=== PATIENT | male | born 1960 | race African-American/Black ===

== ENCOUNTER 2020-11-19 07:42 | Emergency (ER) | payer SELFPAY ==
[~2020-11-19] VITALS: Ht 177.8 cm; Wt 68.0 kg
--- NOTE | 2020-11-19 08:28 | EKG ---
[facility] [address] [place] [address] Test Date: 2020-11-19 Test Time: 08:13:47 Pat Name: KIMBERLY OVERTON Department: Room: Gender: M Job Lithographer: : 1960 Requested By: AKHIL DEL ROSARIO Order Number: [id number] [place] MD: Javier Garcia Measurements Intervals Imperial Rate: 82 P: 63 MA: 162 QRS: 55 QRSD: 78 T: 65 QT: 350 QTc: 412 Interpretive Statements SINUS RHYTHM NON-SPECIFIC ST/T CHANGES Electronically Signed On 11-22-2020 10:15:22 SUPERVISOR EXTRUSION by Javier Garcia
--- NOTE | 2020-11-19 08:46 | RAD ---
Left ankle 3 views INDICATION: Pain and swelling. History of prior fracture. COMPARISON: None. FINDINGS: AP, lateral, and oblique views of the left ankle show diffuse swelling around the ankle, interosseous bridging with ossification of the distal syndesmosis, and surgical fixation of medial and lateral ma lleolus fractures with good healing, including a lateral plate and screw construct, and 2 medial mall eolar fixation screws. No periprosthetic lucency. No evidence of hardware migration. IMPRESSION: Diffuse left ankle soft tissue swelling following ORIF of medial and lateral malleolar fractures with good osseous healing. Electronically signed by: Snehal Gold MD (11/19/2020 8:43 AM) [id number]
[2020-11-19 08:49] LABS: BASO # 0.1 x10^3/uL (0.0-0.2); BASO % 1 % (0-3); EOS % 0 % (0-3); HEMOGLOBIN 14.2 g/dL (13.0-17.5); LYMPH # 0.7 x10^3/uL (1.0-4.8); LYMPH % 14 % (24-48); MEAN CORPUSCULAR HEMOGLOBIN 30 pg (25-35); MEAN CORPUSCULAR HGB CONC 34 g/dL (31-37); MEAN CORPUSCULAR VOLUME 90 fL (79-100); MONO # 0.5 x10^3/uL (0.0-1.1); MONO % 11 % (0-9); NEUT # 3.6 x10^3/uL (1.8-7.7); NEUT % 74 % (31-73); PLATELET COUNT 377 x10^3/uL (140-400); RED BLOOD COUNT 4.69 x10^6/uL (4.30-5.70); RED CELL DISTRIBUTION WIDTH 14.9 % (11.5-14.5); WHITE BLOOD COUNT 4.8 x10^3/uL (4.0-11.0)
[2020-11-19 08:58] LABS: CALCIUM 9.2 mg/dL (8.5-10.1); CREATININE 0.7 mg/dL (0.7-1.3); GFR 140.2
[2020-11-19 09:04] LABS: ALBUMIN 3.6 g/dL (3.4-5.0); ALBUMIN/GLOBULIN RATIO 0.9 (1.0-1.7); MAGNESIUM 1.8 mg/dL (1.8-2.4); TOTAL BILIRUBIN 0.3 mg/dL (0.2-1.0); TOTAL PROTEIN 7.6 g/dL (6.4-8.2)
[2020-11-19 09:05] LABS: ACETAMIN < 2 mcg/ml (10-30); ETHANOL 345 mg/dL (0-10); SALIC < 2.8 mg/dL (2.8-20.0)
[2020-11-19 09:24] LABS: BILIRUBIN,URINE NEGATIVE (NEG); CLARITY,URINE CLEAR; COLOR,URINE YELLOW; NITRITE,URINE NEGATIVE (NEG); PROTEIN,URINE NEGATIVE (NEG-TRACE)
[2020-11-19 09:27] LABS: BARBITURATES NEG (NEG); BENZODIAZEPINES NEG (NEG); CANNABINOIDS NEG (NEG); COCAINE NEG (NEG); METHADONE NEG (NEG); OPIATES NEG (NEG); PHENCYCLIDINE NEG (NEG)
[2020-11-19] MEDS ORDERED: THIAMINE INJ 100 MG, FOLIC ACID INJ 1 MG in IV NORMAL SALINE 1000ML BAG 1,000 ML IV ONE (09:30)
--- NOTE | 2020-11-19 09:30 | RAD ---
EXAM: Left lower extremity venous Doppler. HISTORY: Left lower extremity pain/swelling. COMPARISON: None. FINDINGS: Grayscale and Doppler analysis of the left lower extremity deep venous systems was performe d with graded compression and augmentation. The common femoral, greater saphenous, superficial femora l, popliteal and calf veins were assessed. There is no evidence of deep venous thrombosis. IMPRESSION: 1. No evidence of deep venous thrombosis in the left lower extremity. Electronically signed by: Snehal Gold MD (11/19/2020 9:28 AM) [id number]
--- NOTE | 2020-11-19 09:32 | PHYS DOC ---
Past Medical History Past Medical History: Alcoholism, Unknown Past Medical History Limited secondary to ETOH intoxication Past Surgical History: Other Additional Past Surgical Histo: Left ankle ORIF Past Surgical History Limited secondary to ETOH intoxication Smoking Status: Current Every Day Smoker Alcohol Use: Heavy Additional Information: PT HAD 1/2 CAN OF NATURAL LIGHT AND 1/2 PINT OF VODKA IN BAG. THIS HAS BEEN DISCARDED. PT IS INTOXICATED. PT SAYS HE DRINKS EVERYDAY. Social History Limited secondary to ETOH intoxication General Adult EDM: Chief Complaint: SHORTNESS OF BREATH HPI: HPI: 60 year old male presents with report of LLE swelling and SOA x 2 weeks. Denies fever/chills. Denies cough. Reports remote history of left ankle fracture requiring ORIF. Patient denies trauma. Reports he has been drinking today. Reports he typically drinks "Natural Lights". Reports he also has been having suicidal thoughts. Reports he has thought about "jumping in front of a car." History of present illness limited secondary to alcohol intoxication. Review of Systems: Review of Systems: Review of systems limited secondary to alcohol intoxication Current Medications: Current Medications Medications (Trade) Dose Ordered Sig/Jose Start Time Stop Time Status Last Admin Dose Admin Thiamine HCl 100 mg/Folic Acid 1 mg/Sodium Chloride 1,001.2 ml @ 990.198 mls/hr 1X ONCE 11/19/20 09:30 11/19/20 10:30 11/19/20 09:21 990.198 MLS/HR Allergies: Allergies: Allergies Coded Allergies Type Severity Reaction Last Updated Verified No Known Drug Allergies 11/19/20 No Physical Exam: PE: Constitutional: Well developed, well nourished, intoxicated, disheveled HENT: Normocephalic, atraumatic Eyes: PERRL, EOMI, conjunctiva injected bilaterally, no discharge, horizontal nystagmus noted Neck: Normal range of motion, no tenderness, supple Lungs & Thorax: No respiratory distress, equal chest rise and fall Abdomen: Soft, no tenderness Skin: Warm, dry, no erythema, no rash Extremities: Left ankle tenderness noted, healed surgical scar appreciated, left lower extremity edema +2 Neurologic: Alert but inebriated, no focal deficits noted Psychologic: Affect intoxicated, judgment abnormal, reports suicidal ideation Current Patient Data: Labs: Laboratory Tests Test 11/19/20 08:35 11/19/20 09:00 White Blood Count 4.8 x10^3/uL (4.0-11.0) Red Blood Count 4.69 x10^6/uL (4.30-5.70) Hemoglobin 14.2 g/dL (13.0-17.5) Hematocrit 42.0 % (39.0-53.0) Mean Corpuscular Volume 90 fL (79-100) Mean Corpuscular Hemoglobin 30 pg (25-35) Mean Corpuscular Hemoglobin Concent 34 g/dL (31-37) Red Cell Distribution Width 14.9 % (11.5-14.5) H Platelet Count 377 x10^3/uL (140-400) Neutrophils (%) (Auto) 74 % (31-73) H Lymphocytes (%) (Auto) 14 % (24-48) L Monocytes (%) (Auto) 11 % (0-9) H Eosinophils (%) (Auto) 0 % (0-3) Basophils (%) (Auto) 1 % (0-3) Neutrophils # (Auto) 3.6 x10^3/uL (1.8-7.7) Lymphocytes # (Auto) 0.7 x10^3/uL (1.0-4.8) L Monocytes # (Auto) 0.5 x10^3/uL (0.0-1.1) Eosinophils # (Auto) 0.0 x10^3/uL (0.0-0.7) Basophils # (Auto) 0.1 x10^3/uL (0.0-0.2) Sodium Level 140 mmol/L (136-145) Potassium Level 4.0 mmol/L (3.5-5.1) Chloride Level 101 mmol/L (98-107) Carbon Dioxide Level 25 mmol/L (21-32) Anion Gap 14 (6-14) Blood Urea Nitrogen 6 mg/dL (8-26) L Creatinine 0.7 mg/dL (0.7-1.3) Estimated GFR (Cockcroft-Gault) 140.2 BUN/Creatinine Ratio 9 (6-20) Glucose Level 85 mg/dL (70-99) Calcium Level 9.2 mg/dL (8.5-10.1) Magnesium Level 1.8 mg/dL (1.8-2.4) Total Bilirubin 0.3 mg/dL (0.2-1.0) Aspartate Amino Transferase (AST) 52 U/L (15-37) H Alanine Aminotransferase (ALT) 51 U/L (16-63) Alkaline Phosphatase 94 U/L (46-116) Creatine Kinase 162 U/L (39-308) Creatine Kinase MB (Mass) 1.9 ng/mL (0.0-3.6) Creatine Kinase MB Relative Index 1.2 % (0-4) Troponin I Quantitative < 0.017 ng/mL (0.000-0.055) [id number]-Type Natriuretic Peptide 9 pg/mL (0-124) Total Protein 7.6 g/dL (6.4-8.2) Albumin 3.6 g/dL (3.4-5.0) Albumin/Globulin Ratio 0.9 (1.0-1.7) L Lipase 156 U/L (73-393) Salicylates Level < 2.8 mg/dL (2.8-20.0) L Salicylate Last Dose Date Unknown Salicylate Last Dose Time Unknown Acetaminophen Level < 2 mcg/ml (10-30) L Acetaminophen Last Dose Date Unknown Acetaminophen Last Dose Time Unknown Ethyl Alcohol Level 345 mg/dL (0-10) H Lactic Acid Level 2.3 mmol/L (0.4-2.0) H Laboratory Tests 11/19/20 08:35 Laboratory Tests 11/19/20 08:35 Vital Signs: Vital Signs Date Time Temp Pulse Resp B/P (MAP) Pulse Ox O2 Delivery O2 Flow Rate FiO2 11/19/20 07:47 98.6 90 16 138/86 (103) 98 Room Air 98.6 EKG: EKG: @0813 NSR at 82bpm, NO ST elevation, QRS 78ms, QT/QTc 350/412, baseline artifact noted, V3 rhythm displaced on sheet but visible Radiology/Procedures: Radiology/Procedures: PROCEDURE: ANKLE LEFT 3V Left ankle 3 views INDICATION: Pain and swelling. History of prior fracture. COMPARISON: None. FINDINGS: AP, lateral, and oblique views of the left ankle show diffuse swelling around the ankle, interosseous bridging with ossification of the distal syndesmosis, and surgical fixation of medial and lateral malleolus fractures with good healing, including a lateral plate and screw construct, and 2 medial malleolar fixation screws. No periprosthetic lucency. No evidence of hardware migration. IMPRESSION: Diffuse left ankle soft tissue swelling following ORIF of medial and lateral malleolar fractures with good osseous healing. Electronically signed by: Snehal Gold MD (11/19/2020 8:43 AM) [id number] PROCEDURE: VENOUS LOWER EXTREMITY LEFT EXAM: Left lower extremity venous Doppler. HISTORY: Left lower extremity pain/swelling. COMPARISON: None. FINDINGS: Grayscale and Doppler analysis of the left lower extremity deep venous systems was performed with graded compression and augmentation. The common femoral, greater saphenous, superficial femoral, popliteal and calf veins were assessed. There is no evidence of deep venous thrombosis. IMPRESSION: 1. No evidence of deep venous thrombosis in the left lower extremity. Electronically signed by: Snehal Gold MD (11/19/2020 9:28 AM) [id number] PROCEDURE: CT ANGIOGRAPHY CHEST PQRS Compliance Statement: One or more of the following individualized dose reduction techniques were utilized for this examination: 1. Automated exposure control 2. Adjustment of the mA and/or kV according to patient size 3. Use of iterative reconstruction technique CT CHEST WITH CONTRAST, PULMONARY ANGIOGRAM History: Reason: SOA, elevated d-dimer, Comparison: None. Technique: Helical CT of the chest was performed after the administration of 100 cc of Omnipaque 350 intravenous contrast according to PE protocol. Axial and coronal reconstructions were obtained. 3-D MIP images were constructed to better evaluate the pulmonary arteries. Findings: Pulmonary arteries are adequately opacified. There is no evidence of pulmonary embolism. No thoracic aortic dissection. Great vessels are normal caliber. The thyroid is symmetric. There are mildly enlarged bilateral hilar lymph nodes. There is no mediastinal adenopathy. There is coronary artery disease. Cardiac size is normal, no pericardial effusion. There is no pleural abnormality. The central airways are patent. There are multiple small bulla in the upper lobes. There is bilateral dependent atelectasis. There is fatty infiltration of the liver. Liver is incompletely imaged. The thoracic spine alignment is maintained. IMPRESSION: 1. There is no CT evidence of pulmonary embolus. 2. Mild bilateral hilar adenopathy may be reactive. 3. Bilateral dependent atelectasis. 4. Fatty infiltration of the liver. Electronically signed by: Terrance Crump MD (11/19/2020 10:49 AM) [id number] Course & Med Decision Making: Course & Med Decision Making Pertinent Labs and Imaging studies reviewed. (See chart for details) Patient presents with 2 week history of LLE swelling. Hx of ankle surgery. Patient also reports suicidality and is clinically inebriated. EKG stable. Labs obtained and posted to chart. ETOH > 350. D-dimer elevated. Venous doppler negative for acute DVT. Left ankle XR without acute fractureCTA chest without acute process. Patient medically cleared for PAT evaluation after patient now clinically sober. Barber (PAT) evaluated patient and deemed patient safe for discharge home with outpatient resources. Patient stable for discharge home with outpatient follow-up with PCP. Discussed findings and plan with patient, who acknowledges understanding and agreement. Dominga Disclaimer: Dominga Disclaimer: This electronic medical record was generated, in whole or in part, using a voice recognition dictation system. Departure Departure Impression: Primary Impression: Alcohol intoxication Qualified Codes: F10.921 - Alcohol use, unspecified with intoxication delirium Additional Impressions: Lactic acidosis Suicidal ideation Shortness of breath Peripheral edema Disposition: 01 DC HOME SELF CARE/HOMELESS Condition: STABLE Referrals: NO PCP (PCP) Patient Instructions: Alcohol Intoxication, [id number], Alcohol and Drug Addiction, Finding Treatment, Chronic Alcoholism, Lactic Acid, Lactate, Peripheral Edema, Shortness of Breath, [id number], Suicidal Feelings, How to Help Yourself Additional Instructions: Please utilize resources provided to you in the Emergency Department. AKHIL DEL ROSARIO DO Nov 19, 2020 09:32
[2020-11-19 09:36] LABS: PROTHROMBIN TIME PATIENT 12.6 SEC (11.7-14.0)
[2020-11-19 09:41] LABS: AMPHETAMINE/METHAMPHETAMINE NEG (NEG)
[2020-11-19 09:45] LABS: BACTERIA,URINE 0 /HPF (0-FEW); RBC,URINE 0 /HPF (0-2); WBC,URINE 0 /HPF (0-4)
[2020-11-19 09:51] LABS: D-DIMER 1.72 ug/mlFEU (0.00-0.50)
[2020-11-19] MEDS ORDERED: IOHEXOL 350 MG/ML 100 ML VIAL. IV ONE (10:15)
[2020-11-19] MEDS ORDERED: CONTRAST GIVEN. MC PRN (10:15)
--- NOTE | 2020-11-19 10:52 | RAD ---
PQRS Compliance Statement: One or more of the following individualized dose reduction techniques were utilized for this examinat ion: 1. Automated exposure control 2. Adjustment of the mA and/or kV according to patient size 3. Use of iterative reconstruction technique CT CHEST WITH CONTRAST, PULMONARY ANGIOGRAM History: Reason: SOA, elevated d-dimer, Comparison: None. Technique: Helical CT of the chest was performed after the administration of 100 cc of Omnipaque 350 intravenous contrast according to PE protocol. Axial and coronal reconstructions were obtained. 3- D MIP images were constructed to better evaluate the pulmonary arteries. Findings: Pulmonary arteries are adequately opacified. There is no evidence of pulmonary embolism. No thoracic aortic dissection. Great vessels are normal caliber. The thyroid is symmetric. There are mildly enlarged bilateral hilar lymph nodes. There is no mediastinal adenopathy. There is coronary ar evie disease. Cardiac size is normal, no pericardial effusion. There is no pleural abnormality. The central airways are patent. There are multiple small bulla in th e upper lobes. There is bilateral dependent atelectasis. There is fatty infiltration of the liver. Liver is incompletely imaged. The thoracic spine alignment is maintained. IMPRESSION: 1. There is no CT evidence of pulmonary embolus. 2. Mild bilateral hilar adenopathy may be reactive. 3. Bilateral dependent atelectasis. 4. Fatty infiltration of the liver. Electronically signed by: Terrance Crump MD (11/19/2020 10:49 AM) [id number]
[2020-11-19 12:25] VITALS: BP 132/75
== END 2020-11-19 12:45 | disposition home or self-care (01) ==
LOC: ER 07:42
DX: F10.229 Alcohol dependence with intoxication, unspecified (principal); Y90.8 Blood alcohol level of 240 mg/100 ml or more; E87.2 Acidosis; R45.851 Suicidal ideations; R06.02 Shortness of breath; R60.0 Localized edema; F17.200 Nicotine dependence, unspecified, uncomplicated
CPT/HCPCS: 36415; 71275; 73610; 80053; 80307; 80329; 81001; 82553; 83605; 83690; 83735; 83880; 84484; 85025; 85379; 85610; 85730; 93005; 93971; 96365; 99285; G0480; J3411; J3490; J7030; Q9967

== ENCOUNTER 2020-12-04 19:26 | Emergency (ER) | payer SELFPAY ==
[~2020-12-04] VITALS: Ht 172.7 cm; Wt 56.8 kg
--- NOTE | 2020-12-04 22:23 | ED.ADGEN ---
Past Medical History Past Medical History: Alcoholism, Unknown Past Surgical History: Other Additional Past Surgical Histo: Left ankle ORIF Smoking Status: Current Every Day Smoker Alcohol Use: Heavy General Adult EDM: Chief Complaint: ALCOHOL INTOXICATION HPI: HPI: Patient is a 60 year old AA male who presents to the emergency department via EMS with reports of intoxication. Patient denies any complaints. He denies any fever, body aches, cough, nausea, or vomiting. Patient denies any suicidal or homicidal ideations. He reports that he drank alcohol today. Limited HPI due to patient's intoxicated condition. Per EMS patient is homeless and was found passed out in a [employer] [address]. Review of Systems: Review of Systems: Complete ROS is negative unless otherwise noted in HPI. Allergies: Allergies: Allergies Coded Allergies Type Severity Reaction Last Updated Verified No Known Drug Allergies 11/19/20 No Physical Exam: PE: See Above Constitutional: Well developed, well nourished, no acute distress, non-toxic appearance, unkept, pleasant, odor of EtOH. [] HENT: Normocephalic, atraumatic, bilateral external ears normal, nose normal. [] Eyes: PERRLA, EOMI, conjunctiva normal, no discharge. [] Neck: Normal range of motion, no stridor. [] Cardiovascular:Heart rate regular rhythm Lungs & Thorax: Respirations even and unlabored, no retractions, no respiratory distress Abdomen: soft, no tenderness Skin: Warm, dry, no erythema, no rash. [] Extremities: No cyanosis, ROM intact, no edema. [] Neurologic: Alert and oriented X 2, no focal deficits noted. [] Psychologic: Affect normal, judgement normal, mood normal. [] Current Patient Data: Vital Signs: Vital Signs Date Time Temp Pulse Resp B/P (MAP) Pulse Ox O2 Delivery O2 Flow Rate FiO2 12/04/20 22:03 95 123/76 (92) 93 Room Air 12/04/20 19:31 98.2 20 98.2 EKG: EKG: [] Heart Score: Risk Factors: Risk Factors: DM, Current or recent (<one month) smoker, HTN, HLP, family histo ry of CAD, obesity. Risk Scores: Score 0 - 3: 2.5% MACE over next 6 weeks - Discharge Home Score 4 - 6: 20.3% MACE over next 6 weeks - Admit for Clinical Observation Score 7 - 10: 72.7% MACE over next 6 weeks - Early Invasive Strategies Radiology/Procedures: Radiology/Procedures: [] Course & Med Decision Making: Course & Med Decision Making Pertinent Labs and Imaging studies reviewed. (See chart for details) Patient is cooperative and following commands, he is clinically sober, RN looking for homeless group home. Patient to sleep in the emergency department until clinically sober. [] Dragon Disclaimer: Dragon Disclaimer: This electronic medical record was generated, in whole or in part, using a voice recognition dictation system. Departure Departure Impression: Primary Impression: Alcohol intoxication Disposition: 01 DC HOME SELF CARE/HOMELESS Condition: STABLE Referrals: NO PCP (PCP) Patient Instructions: Alcohol Intoxication, [id number] Additional Instructions: Return to the ER if your symptoms worsen or a fever develops. Attending Signature Attending Signature I have reviewed the PA/LEVER MILLER's note and plan of care. I was available for consultation as needed during the patient's visit in the emergency department. I agree with the clinical impression, plan, and disposition. Problem Qualifiers Primary Impression: Alcohol intoxication Complication of substance-induced condition: uncomplicated Qualified Codes: F10.920 - Alcohol use, unspecified with intoxication, uncomplicated JUAN LAMB APRN Dec 04, 2020 22:23 AKHIL DEL ROSARIO DO Dec 05, 2020 02:20
[2020-12-05 06:03] VITALS: BP 106/62
== END 2020-12-05 07:13 | disposition home or self-care (01) ==
LOC: ER 19:26
DX: F10.229 Alcohol dependence with intoxication, unspecified (principal); Y90.9 Presence of alcohol in blood, level not specified; F17.200 Nicotine dependence, unspecified, uncomplicated; Z59.0 Homelessness
CPT/HCPCS: 99285-25

== ENCOUNTER 2021-05-25 17:03 | Emergency (ER) | payer SELFPAY ==
[~2021-05-25] VITALS: Ht 167.6 cm; Wt 59.9 kg
[2021-05-25 17:18] VITALS: BP 134/88
[2021-05-25] MEDS ORDERED: MULTIVIT INFUSN,ADULT 4,VIT K 10 ML, THIAMINE INJ 100 MG, FOLIC ACID INJ 1 MG in IV NOR... IV ONE (18:00)
[2021-05-25 19:31] LABS: BASO # 0.1 x10^3/uL (0.0-0.2); BASO % 2 % (0-3); EOS % 1 % (0-3); HEMATOCRIT 36.9 % (39.0-53.0); HEMOGLOBIN 13.1 g/dL (13.0-17.5); LYMPH # 0.6 x10^3/uL (1.0-4.8); LYMPH % 24 % (24-48); MEAN CORPUSCULAR HEMOGLOBIN 34 pg (25-35); MEAN CORPUSCULAR HGB CONC 35 g/dL (31-37); MEAN CORPUSCULAR VOLUME 95 fL (79-100); MONO # 0.4 x10^3/uL (0.0-1.1); MONO % 17 % (0-9); NEUT # 1.3 x10^3/uL (1.8-7.7); NEUT % 55 % (31-73); PLATELET COUNT 157 x10^3/uL (140-400); RED BLOOD COUNT 3.89 x10^6/uL (4.30-5.70); RED CELL DISTRIBUTION WIDTH 13.3 % (11.5-14.5); WHITE BLOOD COUNT 2.4 x10^3/uL (4.0-11.0)
[2021-05-25 19:31] LABS: BILIRUBIN,URINE NEGATIVE (NEG); CLARITY,URINE CLEAR; COLOR,URINE YELLOW; NITRITE,URINE NEGATIVE (NEG); PH,URINE 5.5 (<5.0-8.0); PROTEIN,URINE NEGATIVE (NEG-TRACE); UROBILINOGEN,URINE 0.2 mg/dL (0.2 mg/dL)
[2021-05-25 19:38] LABS: BACTERIA,URINE 0 /HPF (0-FEW); BARBITURATES NEG (NEG); BENZODIAZEPINES NEG (NEG); CANNABINOIDS NEG (NEG); COCAINE NEG (NEG); METHADONE NEG (NEG); OPIATES NEG (NEG); PHENCYCLIDINE NEG (NEG); RBC,URINE 0 /HPF (0-2); WBC,URINE 0 /HPF (0-4)
[2021-05-25 19:40] LABS: CALCIUM 8.8 mg/dL (8.5-10.1); CREATININE 0.8 mg/dL (0.7-1.3); GFR 120.1; POTASSIUM 4.1 mmol/L (3.5-5.1)
[2021-05-25 19:42] LABS: AMPHETAMINE/METHAMPHETAMINE NEG (NEG)
[2021-05-25 19:44] LABS: ACETAMIN < 2 mcg/ml (10-30); ETHANOL 230 mg/dL (0-10); SALIC 5.1 mg/dL (2.8-20.0)
[2021-05-25 19:46] LABS: ALBUMIN 3.4 g/dL (3.4-5.0); ALBUMIN/GLOBULIN RATIO 0.9 (1.0-1.7); TOTAL BILIRUBIN 0.3 mg/dL (0.2-1.0); TOTAL PROTEIN 7.4 g/dL (6.4-8.2)
--- NOTE | 2021-05-25 20:50 | PHYS DOC ---
Past Medical History Past Medical History: Alcoholism, Unknown, Other Additional Past Medical Histor: ETOH Past Surgical History: Other Additional Past Surgical Histo: Left ankle ORIF Smoking Status: Current Every Day Smoker Alcohol Use: Heavy General Adult EDM: Chief Complaint: ALCOHOL INTOXICATION HPI: HPI: Patient is a 60 year old male with history of alcoholism presenting today to be evaluated after [place]. Patient admits to alcohol ingestion. He states this is a chronic issue, he states he drinks because he is depressed. He requested help with alcoholism. Denies any suicidal or homicidal ideations. Review of Systems: Review of Systems: Constitutional: Denies fever or chills. [] Eyes: Denies change in visual acuity. [] HENT: Denies nasal congestion or sore throat. [] Respiratory: Denies cough or shortness of breath. [] Cardiovascular: Denies chest pain or edema. [] GI: Denies abdominal pain, nausea, vomiting, bloody stools or diarrhea. [] : Denies dysuria. [] Musculoskeletal: Denies back pain or joint pain. [] Integument: Denies rash. [] Neurologic: Denies headache, focal weakness or sensory changes. [] Endocrine: Denies polyuria or polydipsia. [] Lymphatic: Denies swollen glands. [] Psychiatric: Reports alcohol intoxication and depression Heart Score: C/O Chest Pain: N/A Risk Factors: Risk Factors: DM, Current or recent (<one month) smoker, HTN, HLP, family history of CAD, obesity. Risk Scores: Score 0 - 3: 2.5% MACE over next 6 weeks - Discharge Home Score 4 - 6: 20.3% MACE over next 6 weeks - Admit for Clinical Observation Score 7 - 10: 72.7% MACE over next 6 weeks - Early Invasive Strategies Current Medications: Current Medications Medications (Trade) Dose Ordered Sig/Jose Start Time Stop Time Status Last Admin Dose Admin Multivitamins 10 ml/Thiamine HCl 100 mg/Folic Acid 1 mg/Sodium Chloride 1,011.2 ml @ 1,000.088 mls/hr 1X ONCE 05/25/21 18:00 05/25/21 19:00 DC 05/25/21 19:48 1,000.088 MLS/HR Allergies: Allergies: Allergies Coded Allergies Type Severity Reaction Last Updated Verified No Known Drug Allergies 11/19/20 No Physical Exam: PE: Constitutional: Well developed, well nourished, no acute distress, non-toxic appearance. [] HENT: Normocephalic, atraumatic, bilateral external ears normal, oropharynx moist, no oral exudates, nose normal. [] Eyes: PERRLA, EOMI, conjunctiva normal, no discharge. [] Neck: Normal range of motion, no tenderness, supple, no stridor. [] Cardiovascular:Heart rate regular rhythm, no murmur [] Lungs & Thorax: Bilateral breath sounds clear to auscultation [] Abdomen: Bowel sounds normal, soft, no tenderness, no masses, no pulsatile masses. [] Skin: Warm, dry, no erythema, no rash. [] Back: No tenderness, no CVA tenderness. [] Extremities: No tenderness, no cyanosis, no clubbing, ROM intact, no edema. [] Neurologic: Alert and oriented X 3, normal motor function, normal sensory function, no focal deficits noted. [] Psychologic: Flat affect Current Patient Data: Labs: Laboratory Tests Test 05/25/21 19:19 05/25/21 19:21 White Blood Count 2.4 x10^3/uL (4.0-11.0) L Red Blood Count 3.89 x10^6/uL (4.30-5.70) L Hemoglobin 13.1 g/dL (13.0-17.5) Hematocrit 36.9 % (39.0-53.0) L Mean Corpuscular Volume 95 fL (79-100) Mean Corpuscular Hemoglobin 34 pg (25-35) Mean Corpuscular Hemoglobin Concent 35 g/dL (31-37) Red Cell Distribution Width 13.3 % (11.5-14.5) Platelet Count 157 x10^3/uL (140-400) Neutrophils (%) (Auto) 55 % (31-73) Lymphocytes (%) (Auto) 24 % (24-48) Monocytes (%) (Auto) 17 % (0-9) H Eosinophils (%) (Auto) 1 % (0-3) Basophils (%) (Auto) 2 % (0-3) Neutrophils # (Auto) 1.3 x10^3/uL (1.8-7.7) L Lymphocytes # (Auto) 0.6 x10^3/uL (1.0-4.8) L Monocytes # (Auto) 0.4 x10^3/uL (0.0-1.1) Eosinophils # (Auto) 0.0 x10^3/uL (0.0-0.7) Basophils # (Auto) 0.1 x10^3/uL (0.0-0.2) Sodium Level 134 mmol/L (136-145) L Potassium Level 4.1 mmol/L (3.5-5.1) Chloride Level 98 mmol/L (98-107) Carbon Dioxide Level 23 mmol/L (21-32) Anion Gap 13 (6-14) Blood Urea Nitrogen 6 mg/dL (8-26) L Creatinine 0.8 mg/dL (0.7-1.3) Estimated GFR (Cockcroft-Gault) 120.1 BUN/Creatinine Ratio 8 (6-20) Glucose Level 87 mg/dL (70-99) Calcium Level 8.8 mg/dL (8.5-10.1) Total Bilirubin 0.3 mg/dL (0.2-1.0) Aspartate Amino Transferase (AST) 104 U/L (15-37) H Alanine Aminotransferase (ALT) 134 U/L (16-63) H Alkaline Phosphatase 92 U/L (46-116) Total Protein 7.4 g/dL (6.4-8.2) Albumin 3.4 g/dL (3.4-5.0) Albumin/Globulin Ratio 0.9 (1.0-1.7) L Lipase 163 U/L (73-393) Salicylates Level 5.1 mg/dL (2.8-20.0) Salicylate Last Dose Date Salicylate Last Dose Time Acetaminophen Level < 2 mcg/ml (10-30) L Acetaminophen Last Dose Date Acetaminophen Last Dose Time Ethyl Alcohol Level 230 mg/dL (0-10) H Urine Collection Type Unknown Urine Color Yellow Urine Clarity Clear Urine pH 5.5 (<5.0-8.0) Urine Specific [place] <=1.005 (1.000-1.030) Urine Protein Negative mg/dL (NEG-TRACE) Urine Glucose (UA) Negative mg/dL (NEG) Urine Ketones (Stick) Negative mg/dL (NEG) Urine Blood Negative (NEG) Urine Nitrite Negative (NEG) Urine Bilirubin Negative (NEG) Urine Urobilinogen Dipstick 0.2 mg/dL (0.2 mg/dL) Urine Leukocyte Esterase Negative (NEG) Urine RBC 0 /HPF (0-2) Urine WBC 0 /HPF (0-4) Urine Bacteria 0 /HPF (0-FEW) Urine Opiates Screen Neg (NEG) Urine Methadone Screen Neg (NEG) Urine Barbiturates Neg (NEG) Urine Phencyclidine Screen Neg (NEG) Urine Amphetamine/Methamphetamine Neg (NEG) Urine Benzodiazepines Screen Neg (NEG) Urine Cocaine Screen Neg (NEG) Urine Cannabinoids Screen Neg (NEG) Urine Ethyl Alcohol Pos (NEG) Laboratory Tests 05/25/21 19:19 Laboratory Tests 05/25/21 19:19 Vital Signs: Vital Signs Date Time Temp Pulse Resp B/P (MAP) Pulse Ox O2 Delivery O2 Flow Rate FiO2 05/25/21 17:18 98.8 96 18 134/88 (77) 97 Room Air 98.8 EKG: EKG: [] Radiology/Procedures: Radiology/Procedures: [] Course & Med Decision Making: Course & Med Decision Making Pertinent Labs and Imaging studies reviewed. (See chart for details) This is a 60-year-old male patient with history of alcoholism presenting today to be evaluated after being [place] laying [place] the [place] bus stop. Patient admits to alcohol ingestion. CBC with a WBC of 2.4, AST 104, ALT 134, alcohol level 230. Owen from the PAT team came and talked to patient. He initially wanted help but change his mind and stated he does not need any help with alcohol use Patient was in the ED for a while, when he became more sober and able to ambulate he was allowed to go home. He states he is homeless. Resources for homeless shelters provided. Dominga Disclaimer: Dominga Disclaimer: This electronic medical record was generated, in whole or in part, using a voice recognition dictation system. Departure Departure Impression: Primary Impression: Alcohol intoxication Qualified Codes: F10.929 - Alcohol use, unspecified with intoxication, unspecified Disposition: 01 HOME / SELF CARE / HOMELESS Condition: STABLE Referrals: NO PCP (PCP) Follow-up with resources provided by Owen from the PAT team Patient Instructions: Alcohol Intoxication Additional Instructions: You were evaluated in the emergency room for alcohol intoxication. Please follow-up with your own doctor as well as resources provided in the emergency room HOLLIS ANTONIO APRN May 25, 2021 20:50
== END 2021-05-25 22:03 | disposition home or self-care (01) ==
LOC: ER 17:03
DX: F10.229 Alcohol dependence with intoxication, unspecified (principal); Y90.7 Blood alcohol level of 200-239 mg/100 ml; F17.200 Nicotine dependence, unspecified, uncomplicated
CPT/HCPCS: 36415; 80053; 80307; 80329; 81001; 83690; 85025; 96365; 99284; G0480; J3411; J3490; J7030